=== PATIENT | female | born 1985 | race Hispanic/Latino ===

== ENCOUNTER 2016-12-07 11:58 | Emergency (ER) | payer OTHER ==
[~2016-12-07] VITALS: Ht 157.5 cm; Wt 56.3 kg
[~2016-12-07 11:58] MED LIST: AMOXICILLIN500 MG PO; AZITHROMYCIN PO; FERR SULFATE325 MG PO; FLEXERIL10 MG PO; HYDROCO/APAP1 T11 PO; HYDROCO/APAP1 TA9 PO; IRON325 MG OR; LEVAQUIN500 MG PO; LORTAB 5/3255 MG PO; LORTAB5 PO; MACROBID100 MG OR; METRONIDAZOL500 MG PO; NAPROSYN500 MG OR; NAPROSYN500 MG PO; NO; NO MEDS; NYQUIL OR; PHENERGAN25 MG RE; POT CHLORIDE20 ME3 OR; PRILOSEC OTC20 MG OR; TORADOL OR; TYELNOL; ULTRAM50 M1 PO; ULTRAM50 MG OR; XANAX0.25 MG PO; ZOFRAN ODT8 MG SL
[2016-12-07 13:04] LABS: HEMATOCRIT 43.4 % (37.0-47.0); HEMOGLOBIN 14.2 g/dl (12.0-16.0); IMMATURE GRANULOCYTES 0.2 % (0.0-1.0); MEAN CORPUSCULAR HGB 26.8 pG CALC (26.0-32.0); MEAN CORPUSCULAR HGB CONC 32.7 g/L CALC (32.0-36.0); NEUT# 5.76 thou/uL (2.00-7.15); RED BLOOD COUNT 5.29 mill/uL (4.20-5.60); RED CELL DISTRI WIDTH 14.3 % (11.5-15.5)
[2016-12-07 13:22] LABS: ALBUMIN 4.8 g/dL (3.2-5.0); ALKALINE PHOSPHATASE 70 u/l (38-126); AMYLASE 88 u/l (30-110); ANION GAP 17 (6-22 (CALC)); BILIRUBIN, TOTAL 0.5 mg/dL (0.0-1.4); BUN 15 mg/dL (7-17); BUN/CREATININE RATIO 21 (12-20 (CALC)); CALCIUM 9.5 mg/dL (8.4-10.2); CARBON DIOXIDE 23 mmol/l (22-30); CHLORIDE 110 mmol/l (95-108); CREATININE 0.7 mg/dL (0.5-1.0); GFR > 60 ML/MIN (>=60 (CALC)); GFR FOR AFR.AMER. > 60 ML/MIN (>=60 (CALC)); GLUCOSE 90 mg/dL (65-105); LIPASE 70 u/l (23-300); POTASSIUM 3.9 mmol/l (3.5-5.1); SGOT/AST 29 u/l (14-36); SGPT/ALT 30 u/l (9-52); SODIUM 146 mmol/l (137-146); TOTAL PROTEIN 8.5 g/dL (6.3-8.2)
[2016-12-07] MEDS ORDERED: PREVACID30 M1 PO (15:27)
[2016-12-07] MEDS ORDERED: ULTRAM50 M1 PO (15:27)
[2016-12-07] MEDS ORDERED: ZOFRAN ODT4 MG PO (15:27)
[2016-12-07 15:29] VITALS: BP 100/55
[2016-12-07] MEDS ORDERED: ROBITUSSIN AC10 ML PO (15:45)
== END 2016-12-07 15:50 | disposition home or self-care (01) | DRG 392 ==
LOC: ED 11:58
PROVIDERS: Emergency Medicine
DX: R10.13 Epigastric pain (principal); K29.70 Gastritis, unspecified, without bleeding
CPT/HCPCS: Q9967; S0164

== ENCOUNTER 2017-06-01 22:56 | Emergency (ER) | payer OTHER ==
[~2017-06-01] VITALS: Ht 157.5 cm; Wt 55.0 kg
[~2017-06-01 22:56] MED LIST changes: +PREVACID30 M1 PO; +ROBITUSSIN AC10 ML PO; +ZOFRAN ODT4 MG PO
[2017-06-02] MEDS ORDERED: PERCOCET 5/325M1 TAB PO (00:56)
[2017-06-02 01:50] VITALS: BP 118/72
== END 2017-06-02 01:55 | disposition home or self-care (01) | DRG 563 ==
LOC: ED 22:56
PROC: 0RSKXZZ Reposition Left Shoulder Joint, External Approach (ICD-10-PCS; principal; 2017-06-01)
DX: S43.015A Anterior dislocation of left humerus, initial encounter (principal); F17.210 Nicotine dependence, cigarettes, uncomplicated; F41.9 Anxiety disorder, unspecified; Y93.83 Activity, rough housing and horseplay; Y92.009 Unspecified place in unspecified non-institutional (private) residence as the place of occurrence of the external cause

== ENCOUNTER 2017-09-04 10:48 | Emergency (ER) | payer OTHER ==
[~2017-09-04] VITALS: Ht 157.5 cm; Wt 59.0 kg
[~2017-09-04 10:48] MED LIST changes: +PERCOCET 5/325M1 TAB PO
[2017-09-04 12:29] LABS: URINE BILIRUBIN - DIPSTICK NEGATIVE (NEGATIVE); URINE BLOOD DIPSTICK NEGATIVE (NEGATIVE); URINE COLOR YELLOW; URINE GLUCOSE - DIPSTICK NEGATIVE (NEGATIVE); URINE KETONE NEGATIVE (NEGATIVE); URINE LEUK ESTERASE TRACE (NEGATIVE); URINE NITRITE - DIPSTICK NEGATIVE (Negative); URINE PROTEIN - DIPSTICK NEGATIVE (NEG-TRACE); URINE SPECIFIC GRAVITY 1.025
[2017-09-04 12:31] LABS: URINE CLARITY CLEAR
[2017-09-04 12:49] LABS: HEMATOCRIT 37.9 % (37.0-47.0); IMMATURE GRANULOCYTES 0.3 % (0.0-1.0); MEAN CORPUSCULAR HGB 21.7 pG CALC (26.0-32.0); MEAN CORPUSCULAR HGB CONC 29.6 g/L CALC (32.0-36.0); NEUT# 4.49 thou/uL (2.00-7.15); RED BLOOD COUNT 5.15 mill/uL (4.20-5.60); RED CELL DISTRI WIDTH 16.8 % (11.5-15.5)
[2017-09-04 12:50] LABS: HEMOGLOBIN 11.2 g/dl (12.0-16.0); MEAN CELL VOLUME 73.6 fL CALC (80.0-100.0)
[2017-09-04 12:51] LABS: ALBUMIN 4.2 g/dL (3.2-5.0); ALKALINE PHOSPHATASE 71 u/l (38-126); ANION GAP 14 (6-22 (CALC)); BILIRUBIN, TOTAL 0.3 mg/dL (0.0-1.4); BUN 14 mg/dL (7-17); BUN/CREATININE RATIO 17 (12-20 (CALC)); CARBON DIOXIDE 26 mmol/l (22-30); CHLORIDE 108 mmol/l (95-108); CREATININE 0.8 mg/dL (0.5-1.0); GFR > 60 ML/MIN (>=60 (CALC)); GFR FOR AFR.AMER. > 60 ML/MIN (>=60 (CALC)); LIPASE 64 u/l (23-300); POTASSIUM 3.9 mmol/l (3.5-5.1); SGOT/AST 23 u/l (14-36); SGPT/ALT 22 u/l (9-52); SODIUM 144 mmol/l (137-146); TOTAL PROTEIN 7.3 g/dL (6.3-8.2)
[2017-09-04 13:08] LABS: BETA-HCG, QUANT(RESULT NUMBER) <2 mIU/mL
[2017-09-04] MEDS ORDERED: ZOFRAN4 M1 PO (13:14)
[2017-09-04 13:17] VITALS: BP 96/66
== END 2017-09-04 13:24 | disposition home or self-care (01) | DRG 392 ==
LOC: ED 10:48
PROVIDERS: Family Medicine
DX: R11.0 Nausea (principal); R42 Dizziness and giddiness; R07.9 Chest pain, unspecified; R51 Headache; R10.9 Unspecified abdominal pain; F17.210 Nicotine dependence, cigarettes, uncomplicated

== ENCOUNTER 2017-10-08 09:39 | Emergency (ER) | payer OTHER ==
[~2017-10-08] VITALS: Ht 157.5 cm; Wt 59.0 kg
[~2017-10-08 09:39] MED LIST changes: +ZOFRAN4 M1 PO
[2017-10-08 09:53] VITALS: BP 104/68
[2017-10-08 10:31] LABS: INFLUENZA A NONE DETECTED (NONE DETECT); INFLUENZA B NONE DETECTED (NONE DETECT)
[2017-10-08] MEDS ORDERED: ZPAK PO (10:35)
[2017-10-08] MEDS ORDERED: TESSALON PER100 MG PO (10:35)
[2017-10-08] MEDS ORDERED: MOTRIN400 MG PO (10:35)
== END 2017-10-08 10:25 | disposition home or self-care (01) | DRG 153 ==
LOC: ED 09:39
PROVIDERS: Family Medicine
DX: J06.9 Acute upper respiratory infection, unspecified (principal); F17.210 Nicotine dependence, cigarettes, uncomplicated; R09.81 Nasal congestion; R05 Cough; R09.89 Other specified symptoms and signs involving the circulatory and respiratory systems

== ENCOUNTER 2018-01-28 06:25 | Emergency (ER) | payer OTHER ==
[~2018-01-28] VITALS: Ht 157.5 cm; Wt 59.0 kg
[~2018-01-28 06:25] MED LIST changes: +MOTRIN400 MG PO; +TESSALON PER100 MG PO; +ZPAK PO
[2018-01-28 07:28] LABS: URINE BILIRUBIN - DIPSTICK NEGATIVE (NEGATIVE); URINE BLOOD DIPSTICK NEGATIVE (NEGATIVE); URINE COLOR YELLOW; URINE GLUCOSE - DIPSTICK NEGATIVE (NEGATIVE); URINE KETONE NEGATIVE (NEGATIVE); URINE LEUK ESTERASE NEGATIVE (NEGATIVE); URINE NITRITE - DIPSTICK NEGATIVE (Negative); URINE PROTEIN - DIPSTICK NEGATIVE (NEG-TRACE); URINE SPECIFIC GRAVITY 1.025; URINE UROBILINOGEN - DIPSTICK 0.2 E.U./dL (0.2)
[2018-01-28 07:32] LABS: URINE CLARITY CLEAR
[2018-01-28 07:51] LABS: HEMOGLOBIN 11.5 g/dl (12.0-16.0); IMMATURE GRANULOCYTES 0.6 % (0.0-5.0); MEAN CELL VOLUME 74.5 fL CALC (80.0-100.0); MEAN CORPUSCULAR HGB 22.5 pG CALC (26.0-32.0); MEAN CORPUSCULAR HGB CONC 30.3 g/L CALC (32.0-36.0); NEUT# 2.89 thou/uL (2.00-7.15); RED BLOOD COUNT 5.1 mill/uL (4.20-5.60); RED CELL DISTRI WIDTH 17.6 % (11.5-15.5)
[2018-01-28 07:57] LABS: ANION GAP 9 (6-22 (CALC)); BUN 16 mg/dL (7-17); BUN/CREATININE RATIO 21 (12-20 (CALC)); CARBON DIOXIDE 29 mmol/l (22-30); CHLORIDE 107 mmol/l (95-108); CREATININE 0.8 mg/dL (0.5-1.0); GFR > 60 ML/MIN (>=60 (CALC)); GFR FOR AFR.AMER. > 60 ML/MIN (>=60 (CALC)); POTASSIUM 3.8 mmol/l (3.5-5.1); SODIUM 141 mmol/l (137-146)
[2018-01-28] MEDS ORDERED: MOTRIN400 MG PO (07:59)
[2018-01-28] MEDS ORDERED: VOLTAREN1%GEL TOP (07:59)
[2018-01-28 09:06] VITALS: BP 105/60
== END 2018-01-28 09:13 | disposition home or self-care (01) | DRG 563 ==
LOC: ED 06:25
PROVIDERS: Family Medicine
DX: S39.012A Strain of muscle, fascia and tendon of lower back, initial encounter (principal); F17.210 Nicotine dependence, cigarettes, uncomplicated; V47.6XXA Car passenger injured in collision with fixed or stationary object in traffic accident, initial encounter

== ENCOUNTER 2018-01-29 01:51 | Emergency (ER) | payer OTHER ==
[~2018-01-29] VITALS: Ht 157.5 cm; Wt 59.0 kg
[~2018-01-29 01:51] MED LIST changes: +VOLTAREN1%GEL TOP
[2018-01-29 03:38] VITALS: BP 112/64
== END 2018-01-29 03:42 | disposition home or self-care (01) ==
LOC: ED 01:51
DX: S43.015A Anterior dislocation of left humerus, initial encounter (principal); X50.0XXA Overexertion from strenuous movement or load, initial encounter; Y93.89 Activity, other specified; Y92.000 Kitchen of unspecified non-institutional (private) residence as the place of occurrence of the external cause

== ENCOUNTER 2018-04-22 07:48 | Emergency (ER) | payer OTHER ==
[~2018-04-22] VITALS: Ht 157.5 cm; Wt 60.0 kg
[2018-04-22 08:21] VITALS: BP 118/62
== END 2018-04-22 08:22 | disposition home or self-care (01) ==
LOC: ED 07:48
DX: M24.412 Recurrent dislocation, left shoulder (principal)

== ENCOUNTER 2018-06-11 10:09 | Emergency (ER) | payer OTHER ==
[~2018-06-11] VITALS: Ht 157.5 cm; Wt 63.6 kg
[2018-06-11 12:09] LABS: URINE BILIRUBIN - DIPSTICK NEGATIVE (NEGATIVE); URINE BLOOD DIPSTICK NEGATIVE (NEGATIVE); URINE COLOR YELLOW; URINE GLUCOSE - DIPSTICK NEGATIVE (NEGATIVE); URINE KETONE NEGATIVE (NEGATIVE); URINE LEUK ESTERASE NEGATIVE (NEGATIVE); URINE NITRITE - DIPSTICK NEGATIVE (Negative); URINE PH 7.5 (4.5-8.0); URINE PROTEIN - DIPSTICK NEGATIVE (NEG-TRACE); URINE UROBILINOGEN - DIPSTICK 0.2 E.U./dL (0.2)
[2018-06-11 12:10] VITALS: BP 120/68
[2018-06-11 12:10] LABS: URINE CLARITY CLEAR
[2018-06-11 12:11] LABS: BARBITURATES NEGATIVE (NEGATIVE); COCAINE NEGATIVE (NEGATIVE); METHADONE NEGATIVE (NEGATIVE); OXCYCODONE NEGATIVE (NEGATIVE); TETRAHYDROCANNABIONOL POSITIVE (NEGATIVE); TRICYLIC ANTIDEPRESSANTS NEGATIVE (NEGATIVE)
== END 2018-06-11 12:10 | disposition left against medical advice (07) ==
LOC: ED 10:09
PROVIDERS: Emergency Medicine
DX: M54.9 Dorsalgia, unspecified (principal); F17.210 Nicotine dependence, cigarettes, uncomplicated; Z91.19 Patient's noncompliance with other medical treatment and regimen

== ENCOUNTER 2018-09-13 08:41 | Emergency (ER) | payer OTHER ==
[~2018-09-13] VITALS: Ht 157.5 cm; Wt 70.0 kg
[2018-09-13] MEDS ORDERED: TAM75CAP PO (09:07)
[2018-09-13] MEDS ORDERED: MOTRIN400 MG PO (09:07)
[2018-09-13 09:09] VITALS: BP 122/65
== END 2018-09-13 09:18 | disposition home or self-care (01) ==
LOC: ED 08:41
DX: J11.1 Influenza due to unidentified influenza virus with other respiratory manifestations (principal); R05 Cough; R50.9 Fever, unspecified

== ENCOUNTER 2019-04-22 07:23 | Emergency (ER) | payer OTHER ==
[~2019-04-22] VITALS: Ht 157.5 cm; Wt 62.0 kg
[~2019-04-22 07:23] MED LIST changes: +TAM75CAP PO
[2019-04-22 07:52] LABS: URINE BILIRUBIN - DIPSTICK NEGATIVE (NEGATIVE); URINE BLOOD DIPSTICK LARGE (NEGATIVE); URINE COLOR YELLOW; URINE GLUCOSE - DIPSTICK NEGATIVE (NEGATIVE); URINE KETONE NEGATIVE (NEGATIVE); URINE LEUK ESTERASE NEGATIVE (NEGATIVE); URINE NITRITE - DIPSTICK NEGATIVE (Negative); URINE PH 7.5 (4.5-8.0); URINE PROTEIN - DIPSTICK NEGATIVE (NEG-TRACE); URINE UROBILINOGEN - DIPSTICK 0.2 E.U./dL (0.2)
[2019-04-22 07:57] LABS: URINE WBC 0-2 WBC/hpf (0-5)
[2019-04-22 08:12] LABS: HEMATOCRIT 37.6 % (37.0-47.0); HEMOGLOBIN 11.7 g/dl (12.0-16.0); IMMATURE GRANULOCYTES 0.4 % (0.0-5.0); MEAN CORPUSCULAR HGB 24.7 pG CALC (26.0-32.0); MEAN CORPUSCULAR HGB CONC 31.1 g/L CALC (32.0-36.0); NEUT# 3.34 thou/uL (2.00-7.15); RED BLOOD COUNT 4.74 mill/uL (4.20-5.60); RED CELL DISTRI WIDTH 16.1 % (11.5-15.5)
[2019-04-22 08:41] LABS: ALBUMIN 4.1 g/dL (3.2-5.0); ALKALINE PHOSPHATASE 64 u/l (38-126); ANION GAP 11 (6-22 (CALC)); BILIRUBIN, TOTAL 0.2 mg/dL (0.0-1.4); BUN 16 mg/dL (7-17); BUN/CREATININE RATIO 23 (12-20 (CALC)); CARBON DIOXIDE 24 mmol/l (22-30); CHLORIDE 109 mmol/l (95-108); CREATININE 0.7 mg/dL (0.5-1.0); GFR > 60 ML/MIN (>=60 (CALC)); GFR FOR AFR.AMER. > 60 ML/MIN (>=60 (CALC)); POTASSIUM 3.9 mmol/l (3.5-5.1); SGOT/AST 32 u/l (14-36); SODIUM 140 mmol/l (137-146); TOTAL PROTEIN 7.5 g/dL (6.3-8.2)
[2019-04-22 08:47] LABS: MEAN CELL VOLUME 79.3 fL CALC (80.0-100.0)
[2019-04-22 09:55] VITALS: BP 103/58
== END 2019-04-22 10:00 | disposition home or self-care (01) ==
LOC: ED 07:23
PROVIDERS: Family Medicine
DX: O26.899 Other specified pregnancy related conditions, unspecified trimester (principal); R10.32 Left lower quadrant pain; Z3A.00 Weeks of gestation of pregnancy not specified

== ENCOUNTER 2019-07-28 | Emergency (ER) | payer OTHER ==
[2019-07-28] MEDS ORDERED: PRE-NATAL PO (10:12)
[2019-07-28 11:12] LABS: HEMATOCRIT 37.9 % (37.0-47.0); HEMOGLOBIN 11.9 g/dl (12.0-16.0); IMMATURE GRANULOCYTES 0.4 % (0.0-5.0); MEAN CELL VOLUME 77.7 fL CALC (80.0-100.0); MEAN CORPUSCULAR HGB 24.4 pG CALC (26.0-32.0); MEAN CORPUSCULAR HGB CONC 31.4 g/L CALC (32.0-36.0); NEUT# 6.2 thou/uL (2.00-7.15); RED BLOOD COUNT 4.88 mill/uL (4.20-5.60)
[2019-07-28 11:24] LABS: ALBUMIN 3.8 g/dL (3.2-5.0); ALKALINE PHOSPHATASE 58 u/l (38-126); AMYLASE 68 u/l (30-110); ANION GAP 11 (6-22 (CALC)); BUN 10 mg/dL (7-17); BUN/CREATININE RATIO 24 (12-20 (CALC)); CARBON DIOXIDE 22 mmol/l (22-30); CHLORIDE 104 mmol/l (95-108); CREATININE 0.4 mg/dL (0.5-1.0); GFR > 60 ML/MIN (>=60 (CALC)); GFR FOR AFR.AMER. > 60 ML/MIN (>=60 (CALC)); LIPASE 40 u/l (23-300); POTASSIUM 3.8 mmol/l (3.5-5.1); SGOT/AST 22 u/l (14-36); SODIUM 134 mmol/l (137-146); TOTAL PROTEIN 7.1 g/dL (6.3-8.2)
[2019-07-28 11:31] LABS: BILIRUBIN, TOTAL 0.3 mg/dL (0.0-1.4)
[2019-07-28 11:42] LABS: URINE BILIRUBIN - DIPSTICK NEGATIVE (NEGATIVE); URINE BLOOD DIPSTICK NEGATIVE (NEGATIVE); URINE COLOR YELLOW; URINE GLUCOSE - DIPSTICK NEGATIVE (NEGATIVE); URINE KETONE NEGATIVE (NEGATIVE); URINE LEUK ESTERASE NEGATIVE (NEGATIVE); URINE NITRITE - DIPSTICK NEGATIVE (Negative); URINE PROTEIN - DIPSTICK NEGATIVE (NEG-TRACE); URINE SPECIFIC GRAVITY 1.015; URINE UROBILINOGEN - DIPSTICK 0.2 E.U./dL (0.2)
[2019-07-28 12:04] LABS: BETA-HCG, QUANT(RESULT NUMBER) 41160 mIU/mL
== END 2019-07-28 13:34 | disposition home or self-care (01) ==
PROVIDERS: Emergency Medicine
DX: O26.891 Other specified pregnancy related conditions, first trimester (principal); R10.30 Lower abdominal pain, unspecified; O99.331 Smoking (tobacco) complicating pregnancy, first trimester; F17.210 Nicotine dependence, cigarettes, uncomplicated; Z3A.13 13 weeks gestation of pregnancy

== ENCOUNTER 2019-08-20 | Emergency (ER) | payer OTHER ==
[~2019-08-20] MED LIST changes: +PRE-NATAL PO
[2019-08-20 17:56] LABS: HEMATOCRIT 32.9 % (37.0-47.0); HEMOGLOBIN 10.5 g/dl (12.0-16.0); IMMATURE GRANULOCYTES 0.5 % (0.0-5.0); MEAN CELL VOLUME 76.9 fL CALC (80.0-100.0); MEAN CORPUSCULAR HGB 24.5 pG CALC (26.0-32.0); MEAN CORPUSCULAR HGB CONC 31.9 g/L CALC (32.0-36.0); NEUT# 4.38 thou/uL (2.00-7.15); RED BLOOD COUNT 4.28 mill/uL (4.20-5.60); RED CELL DISTRI WIDTH 15.7 % (11.5-15.5)
[2019-08-20 18:13] LABS: ALBUMIN 3.5 g/dL (3.2-5.0); ALKALINE PHOSPHATASE 50 u/l (38-126); ANION GAP 11 (6-22 (CALC)); BILIRUBIN, TOTAL 0.3 mg/dL (0.0-1.4); BUN 13 mg/dL (7-17); BUN/CREATININE RATIO 24 (12-20 (CALC)); CARBON DIOXIDE 20 mmol/l (22-30); CHLORIDE 108 mmol/l (95-108); CREATININE 0.5 mg/dL (0.5-1.0); GFR > 60 ML/MIN (>=60 (CALC)); GFR FOR AFR.AMER. > 60 ML/MIN (>=60 (CALC)); SGOT/AST 24 u/l (14-36); SODIUM 135 mmol/l (137-146); TOTAL PROTEIN 6.7 g/dL (6.3-8.2)
[2019-08-20 18:29] LABS: BETA-HCG, QUANT(RESULT NUMBER) 10744 mIU/mL
[2019-08-20 18:35] LABS: URINE BILIRUBIN - DIPSTICK NEGATIVE (NEGATIVE); URINE BLOOD DIPSTICK NEGATIVE (NEGATIVE); URINE COLOR YELLOW; URINE GLUCOSE - DIPSTICK NEGATIVE (NEGATIVE); URINE KETONE NEGATIVE (NEGATIVE); URINE LEUK ESTERASE NEGATIVE (NEGATIVE); URINE NITRITE - DIPSTICK NEGATIVE (Negative); URINE PH 6.5 (4.5-8.0); URINE PROTEIN - DIPSTICK 30 mg/dL (NEG-TRACE); URINE SPECIFIC GRAVITY >=1.030; URINE UROBILINOGEN - DIPSTICK 0.2 E.U./dL (0.2)
[2019-08-20 18:49] LABS: URINE RBC 0-2 RBC/hpf (0-5); URINE SQUAMOUS EPITHELIAL CELL FEW EPI/hpf (0-FEW); URINE WBC 0-2 WBC/hpf (0-5)
== END 2019-08-20 22:31 | disposition home or self-care (01) ==
PROVIDERS: Family Medicine
DX: O99.282 Endocrine, nutritional and metabolic diseases complicating pregnancy, second trimester (principal); E86.0 Dehydration; O99.332 Smoking (tobacco) complicating pregnancy, second trimester; F17.201 Nicotine dependence, unspecified, in remission; Z3A.16 16 weeks gestation of pregnancy

== ENCOUNTER 2020-01-10 18:56 | Emergency (ER) | payer OTHER ==
[~2020-01-10] VITALS: Ht 157.5 cm; Wt 77.0 kg
[2020-01-10 20:18] VITALS: BP 138/70
== END 2020-01-10 20:18 | disposition home or self-care (01) ==
LOC: ED 18:56
DX: O99.89 Other specified diseases and conditions complicating pregnancy, childbirth and the puerperium (principal); M24.412 Recurrent dislocation, left shoulder; O99.333 Smoking (tobacco) complicating pregnancy, third trimester; F17.210 Nicotine dependence, cigarettes, uncomplicated; Z3A.36 36 weeks gestation of pregnancy

== ENCOUNTER 2020-04-30 03:46 | Emergency (ER) | payer OTHER ==
[~2020-04-30] VITALS: Ht 157.5 cm; Wt 63.6 kg
[2020-04-30 05:13] LABS: HEMOGLOBIN 12.4 g/dl (12.0-16.0); IMMATURE GRANULOCYTES 0.2 % (0.0-5.0); MEAN CELL VOLUME 77.7 fL CALC (80.0-100.0); MEAN CORPUSCULAR HGB 23.3 pG CALC (26.0-32.0); NEUT# 2.19 thou/uL (2.00-7.15); RED BLOOD COUNT 5.33 mill/uL (4.20-5.60); RED CELL DISTRI WIDTH 16.2 % (11.5-15.5)
[2020-04-30 05:14] LABS: HEMATOCRIT 41.4 % (37.0-47.0)
[2020-04-30 05:27] LABS: ALKALINE PHOSPHATASE 73 u/l (38-126); ANION GAP 13 (6-22 (CALC)); BILIRUBIN, TOTAL 0.4 mg/dL (0.0-1.4); BUN 15 mg/dL (7-17); BUN/CREATININE RATIO 19 (12-20 (CALC)); CARBON DIOXIDE 24 mmol/l (22-30); CHLORIDE 108 mmol/l (95-108); CREATININE 0.8 mg/dL (0.5-1.0); GFR > 60 ML/MIN (>=60 (CALC)); GFR FOR AFR.AMER. > 60 ML/MIN (>=60 (CALC)); POTASSIUM 3.5 mmol/l (3.5-5.1); SGOT/AST 27 u/l (14-36); SODIUM 141 mmol/l (137-146); TOTAL PROTEIN 7.5 g/dL (6.3-8.2)
[2020-04-30 05:42] LABS: ALBUMIN 4.3 g/dL (3.2-5.0)
[2020-04-30 05:50] VITALS: BP 118/70
[2020-04-30] MEDS ORDERED: XANAX0.25 MG PO (05:56)
== END 2020-04-30 06:20 | disposition home or self-care (01) ==
LOC: ED 03:46
PROVIDERS: Emergency Medicine
DX: F41.0 Panic disorder [episodic paroxysmal anxiety] (principal); F17.210 Nicotine dependence, cigarettes, uncomplicated; L80 Vitiligo

== ENCOUNTER 2020-06-06 08:44 | Emergency (ER) | payer OTHER ==
[~2020-06-06] VITALS: Ht 157.5 cm; Wt 80.0 kg
[2020-06-06] MEDS ORDERED: CLARITIN10 M1 PO (10:11)
[2020-06-06 10:30] VITALS: BP 105/81
--- NOTE | 2020-06-09 11:00 | NUR ---
Patient called for Covid results. Advised patient of negative results. Patient denies symptoms at this time. Encouraged patient to continue with Covid prevention. Patient verbalized understanding.
== END 2020-06-06 10:30 | disposition home or self-care (01) ==
LOC: ED 08:44
DX: B34.9 Viral infection, unspecified (principal); F17.200 Nicotine dependence, unspecified, uncomplicated; Z20.828 Contact with and (suspected) exposure to other viral communicable diseases

== ENCOUNTER 2020-10-01 | Emergency (ER) | payer OTHER ==
[~2020-10-01] MED LIST changes: +CLARITIN10 M1 PO
[2020-10-01] MEDS ORDERED: NAPROXEN500 MG PO (13:27)
== END 2020-10-01 13:29 | disposition home or self-care (01) ==
DX: M24.412 Recurrent dislocation, left shoulder (principal); F17.200 Nicotine dependence, unspecified, uncomplicated

== ENCOUNTER 2020-12-06 09:29 | Emergency (ER) | payer OTHER ==
[~2020-12-06] VITALS: Ht 157.5 cm; Wt 59.0 kg
[~2020-12-06 09:29] MED LIST changes: +NAPROXEN500 MG PO
[2020-12-06 09:32] VITALS: BP 106/64
[2020-12-06 10:03] LABS: HEMATOCRIT 37.8 % (37.0-47.0); HEMOGLOBIN 11.7 g/dl (12.0-16.0); IMMATURE GRANULOCYTES 0.3 % (0.0-5.0); MEAN CELL VOLUME 77.9 fL CALC (80.0-100.0); MEAN CORPUSCULAR HGB 24.1 pG CALC (26.0-32.0); NEUT# 4.26 thou/uL (2.00-7.15); RED BLOOD COUNT 4.85 mill/uL (4.20-5.60); RED CELL DISTRI WIDTH 16.1 % (11.5-15.5)
[2020-12-06 10:16] LABS: ALKALINE PHOSPHATASE 51 u/l (38-126); BILIRUBIN, TOTAL 0.3 mg/dL (0.0-1.4); BUN 11 mg/dL (7-17); BUN/CREATININE RATIO 22 (12-20 (CALC)); CARBON DIOXIDE 22 mmol/l (22-30); CHLORIDE 106 mmol/l (95-108); CREATININE 0.5 mg/dL (0.5-1.0); GFR > 60 ML/MIN (>=60 (CALC)); GFR FOR AFR.AMER. > 60 ML/MIN (>=60 (CALC)); POTASSIUM 3.9 mmol/l (3.5-5.1); SGOT/AST 24 u/l (14-36); TOTAL PROTEIN 7.5 g/dL (6.3-8.2)
[2020-12-06 10:20] LABS: ANION GAP 9 (6-22 (CALC)); SODIUM 133 mmol/l (137-146)
== END 2020-12-06 12:34 | disposition left against medical advice (07) ==
LOC: ED 09:29
PROVIDERS: Family Medicine
DX: O26.851 Spotting complicating pregnancy, first trimester (principal); O99.331 Smoking (tobacco) complicating pregnancy, first trimester; F17.200 Nicotine dependence, unspecified, uncomplicated; Z3A.08 8 weeks gestation of pregnancy; Z91.19 Patient's noncompliance with other medical treatment and regimen; Z67.90 Unspecified blood type, Rh positive

== ENCOUNTER 2021-03-01 08:27 | Emergency (ER) | payer OTHER | END 2021-03-01 10:10 | disposition left against medical advice (07) | DRG 951 | LOC: ED 08:27 → LWOBS 10:09 | DX: Z53.21 Procedure and treatment not carried out due to patient leaving prior to being seen by health care provider (principal) ==

== ENCOUNTER 2021-04-23 22:59 | Emergency (ER) | payer OTHER ==
[~2021-04-23] VITALS: Ht 157.5 cm; Wt 64.0 kg
[2021-04-23 23:28] VITALS: BP 119/58
[2021-04-23] MEDS ORDERED: PROVERA5 MG PO (23:38)
[2021-04-24] MEDS ORDERED: MOTRIN800 MG PO (01:18)
[2021-04-24] MEDS ORDERED: TRAMADOL HCL50 MG PO (01:18)
== END 2021-04-24 01:45 | disposition home or self-care (01) ==
LOC: ED 22:59
DX: S82.831A Other fracture of upper and lower end of right fibula, initial encounter for closed fracture (principal); F17.210 Nicotine dependence, cigarettes, uncomplicated; X50.0XXA Overexertion from strenuous movement or load, initial encounter; Y93.44 Activity, trampolining; Y92.89 Other specified places as the place of occurrence of the external cause

== ENCOUNTER 2021-12-08 23:34 | Emergency (ER) | payer OTHER ==
[~2021-12-08] VITALS: Ht 157.5 cm; Wt 59.0 kg
[~2021-12-08 23:34] MED LIST changes: +MOTRIN800 MG PO; +PROVERA5 MG PO; +TRAMADOL HCL50 MG PO
[2021-12-08 23:40] VITALS: BP 113/80
[2021-12-09] VITALS: BP 113/69
[2021-12-09] MEDS ORDERED: NAPROXEN500 MG PO (00:21)
[2021-12-09 00:30] VITALS: BP 98/61
[2021-12-09 00:38] VITALS: BP 98/61
== END 2021-12-09 00:44 | disposition home or self-care (01) ==
LOC: ED 23:34
DX: S93.402A Sprain of unspecified ligament of left ankle, initial encounter (principal); F17.200 Nicotine dependence, unspecified, uncomplicated; X50.0XXA Overexertion from strenuous movement or load, initial encounter

== ENCOUNTER 2022-01-05 16:57 | Emergency (ER) | payer OTHER ==
[~2022-01-05] VITALS: Ht 157.5 cm; Wt 59.0 kg
[2022-01-05 17:30] VITALS: BP 126/75
== END 2022-01-05 17:30 | disposition left against medical advice (07) ==
LOC: ED 16:57
DX: M25.512 Pain in left shoulder (principal); F17.290 Nicotine dependence, other tobacco product, uncomplicated; X50.0XXA Overexertion from strenuous movement or load, initial encounter; Y93.83 Activity, rough housing and horseplay; Z91.19 Patient's noncompliance with other medical treatment and regimen

== ENCOUNTER 2022-05-05 05:13 | Emergency (ER) | payer OTHER ==
[~2022-05-05] VITALS: Ht 157.5 cm; Wt 61.3 kg
[2022-05-05 05:46] VITALS: BP 111/68
== END 2022-05-05 05:49 | disposition left against medical advice (07) ==
LOC: ED 05:13
DX: M24.412 Recurrent dislocation, left shoulder (principal); F17.200 Nicotine dependence, unspecified, uncomplicated; Z53.29 Procedure and treatment not carried out because of patient's decision for other reasons